=== PATIENT | female | born 1950 ===

== ENCOUNTER 2018-03-18 16:50 | Emergency (ER) | payer MEDICARE, MEDICAID ==
[2018-03-18 16:57] VITALS: BMI 33.3
[2018-03-18 18:04] LABS: BASO # 0.1 K/uL (0.0-0.2); BASO % 1.3 % (0.0-2.0); EOS # 0.2 K/uL (0.0-0.7); EOS % 2.1 % (0.0-4.0); HEMOGLOBIN 12.2 g/dL (11.0-16.0); LYMPH # 3.8 K/uL (1.0-4.3); LYMPH % 41.7 % (20.0-40.0); MEAN CELL VOLUME 78.4 fL (81.0-99.0); MEAN CORPUSCULAR HEMOGLOBIN 26.7 pg (27.0-31.0); MEAN PLATELET VOLUME 6.9 fL (7.2-11.7); MONO # 0.6 K/uL (0.0-0.8); NEUT # 4.4 K/uL (1.8-7.0); NEUT % 47.9 % (50.0-75.0); NRBC % 0.1 % (0.0-2.0); RBC 4.58 Mil/uL (3.80-5.20); RED CELL DISTRIBUTION WIDTH 14.6 % (11.5-14.5); WHITE BLOOD COUNT 9.1 K/uL (4.8-10.8)
[2018-03-18 18:15] LABS: ALB/GLOB RATIO 1.3 (1.0-2.1); ALBUMIN 4.5 g/dL (3.5-5.0); ALT/SGPT 32 U/L (9-52); AST/SGOT 26 U/L (14-36); BLOOD UREA NITROGEN 18 mg/dL (7-17); GFR AFRICAN-AMERICAN > 60; GFR NON-AFRICAN AMERICAN > 60; INR 2.6; PROTHROMBIN TIME 28.2 SECONDS (9.7-12.2)
[2018-03-18 18:28] LABS: B-TYPE NATRIURETIC PEPTIDE 57.7 pg/mL (0-900)
--- NOTE | 2018-03-18 18:28 | RAD ---
Date of service: 03/18/2018 PROCEDURE: CHEST RADIOGRAPH, 1 VIEW HISTORY: SOB COMPARISON: 08/29/2015 FINDINGS: LUNGS: Clear. PLEURA: No pneumothorax or pleural fluid seen. CARDIOVASCULAR: No radiographic findings to suggest acute or significant cardiovascular disease. OSSEOUS STRUCTURES: No significant abnormalities. VISUALIZED UPPER ABDOMEN: Normal. OTHER FINDINGS: None. IMPRESSION: No active disease. No acute/significant interval changes.
--- NOTE | 2018-03-18 18:29 | C.PDOC ---
History Of Present Illness 67 y/o female presents to the ER complaining of SOB and palpitations that have been worsening over the past 8-9 days. The patient states they have been increasing in frequency and duration. She admits to having a history of PE. The patient denies any nausea, vomiting, diarrhea, chills, or chest pain. Time Seen by Provider: 03/18/18 17:39 Chief Complaint (Nursing): Palpitations History Per: Patient History/Exam Limitations: no limitations Onset/Duration Of Symptoms: Days Current Symptoms Are (Timing): Still Present Quality: "Pain" Recent travel outside of the [place]: No Past Medical History Reviewed: Historical Data, Nursing Documentation, Vital Signs Vital Signs: Last Vital Signs Temp 98.0 F 03/18/18 16:57 Pulse 101 H 03/18/18 16:57 Resp 18 03/18/18 16:57 BP 159/80 H 03/18/18 16:57 Pulse Ox 99 03/18/18 18:40 - Medical History PMH: Anxiety, Asthma, COPD, Depression, Emphysema, Fractures (RT LEG/CASTED), Gastritis, HTN, Hypercholesterolemia, Hypothyroidism, Pulmonary Embolism (2008) Denies: Chronic Kidney Disease Surgical History: Cholecystectomy, Endoscopy - [facility] Procedures CATARAC PHACOEMULS/ASPIR (12/20/13) EXCISION OF LEFT BREAST, OPEN APPROACH (08/29/15) INSERT LENS AT CATAR EXT (12/20/13) Family History: States: Unknown Family Hx - Social History Hx Alcohol Use: No Hx Substance Use: No - Immunization History Hx Tetanus Toxoid Vaccination: Yes Hx Influenza Vaccination: Yes Hx Pneumococcal Vaccination: Yes Review Of Systems Except As Marked, All Systems Reviewed And Found Negative. Constitutional: Negative for: Fever Cardiovascular: Positive for: Palpitations. Negative for: Chest Pain Respiratory: Positive for: Shortness of Breath Gastrointestinal: Negative for: Nausea, Vomiting, Diarrhea Physical Exam - Physical Exam Appears: Non-toxic, No Acute Distress Skin: Normal Color, Warm, Dry Head: Atraumatic, Normacephalic Eye(s): bilateral: Normal Inspection, PERRL, EOMI Nose: Normal Oral Mucosa: Moist Chest: Symmetrical Cardiovascular: Rhythm Regular, No Murmur Respiratory: Normal Breath Sounds, No Rales, No Rhonchi, No Wheezing Gastrointestinal/Abdominal: Normal Exam, Soft, No Tenderness Extremity: Bilateral: Atraumatic, Normal Color And Temperature, Normal ROM Neurological/Psych: Oriented x3, Normal Speech ED Course And Treatment - Laboratory Results Result Diagrams: 03/18/18 18:01 03/18/18 18:01 ECG: Interpreted By Me, Viewed By Me Interpretation Of ECG: sinus tachycardic (103 bpm). No interval. Normal axis. No ST or P wave abnormalities O2 Sat by Pulse Oximetry: 99 (RA) Pulse Ox Interpretation: Normal Medical Decision Making Medical Decision Making: Impression: 67 y/o female with worsening SOB and palpitations Plan: --EKG --B-Type Natriuretic Peptide --CMP --Troponin I --TSH --CBC --D Dimer --PTT --PT --Chest X-Ray --Ativan 0.5 mg IV palpitations/sob - case s/o to Dr. Stone at 1900 Disposition Discussed With : Pebbles Stone - Disposition Disposition Time: 19:00 Condition: FAIR Forms: [employer] (Estonian) - Clinical Impression Clinical Impression: Palpitations - PA / LEASE ANALYST / Resident Statement MD/DO has reviewed & agrees with the documentation as recorded. - Scribe Statement The provider has reviewed the documentation as recorded by the Scribe (Jess Steel) Provider Attestation: All medical record entries made by the Scribe were at my direction and personally dictated by me. I have reviewed the chart and agree that the record accurately reflects my personal performance of the history, physical exam, medical decision making, and the department course for this patient. I have also personally directed, reviewed, and agree with the discharge instructions and disposition.
[2018-03-18] MEDS ORDERED: Iodixanol 320 MG/ML 100 ML BOTTLE IV ONE (20:04)
[2018-03-18 23:12] VITALS: BP 138/86; PULSE 88; RESP 20; TEMP 98.6; O2SAT 98
--- NOTE | 2018-03-19 09:32 | CT ---
Date of service: 03/18/2018 PROCEDURE: CT Chest with contrast (Pulmonary Angiogram) HISTORY: SOB r/o PE COMPARISON: No prior study is CTA or CT scan chest available comparison however correlation made with chest radiograph obtained earlier same day. Comparison also made with CT scan abdomen pelvis 02/16/2015 which imaged both lung bases. TECHNIQUE: Axial computed tomography images were obtained of the chest in the pulmonary arterial phase of enhancement. Coronal and sagittal reformatted images were created and reviewed. Intravenous contrast dose: 100 cc Visipaque 320 Radiation dose: Total exam DLP = 384.93 mGy-cm. This CT exam was performed using one or more of the following dose reduction techniques: Automated exposure control, adjustment of the mA and/or kV according to patient size, and/or use of iterative reconstruction technique. FINDINGS: PULMONARY ARTERIES: The visualized pulmonary trunk, right and left main, lobar, segmental and proximal subsegmental branches of the pulmonary arteries are well opacified with no definitive filling defects seen to suggest central pulmonary embolus. The pulmonary trunk measures approximately 2.3 cm. AORTA: No acute findings. No thoracic aortic aneurysm. Ascending thoracic aorta measures approximately 2.4 cm and descending thoracic aorta measures approximately 2.22 cm. LUNGS: Mild atelectasis both posterior lower lung zones. PLEURAL SPACES: Unremarkable. No effusion or pneumothorax. HEART: Heart size normal. No significant pericardial effusion. Calcified mitral annulus. No evidence to suggest pulmonary hypertension or dysfunction. LYMPH NODES: No significant mediastinal or adenopathy. Intermittent air seen within the esophagus. Small hiatal hernia. BONES, CHEST WALL: Mild multilevel degenerative spondylosis of the thoracic spine. There are no acute compression fractures nor retropulsed fragments. OTHER FINDINGS: Note is made of a small approximately 12.9 x 12.5 mm lesion in the dome of the liver that exhibits some irregular peripheral enhancement and central low attenuation likely representing a small hemangioma. Consider followup triple phase CT scan of the liver confirm. Small exophytic cyst right kidney measuring approximately 2.2 x 2.1 cm. IMPRESSION: No evidence of acute central pulmonary embolus. . Probable small hemangioma superior aspect right lobe liver. Consider follow-up triple phase CT scan of the liver to confirm
--- NOTE | 2018-03-20 12:56 | CARD ---
APPROVED REPORT Date of service: 03/18/2018 EKG Measurement Heart [id number] <Conclusion> Sinus tachycardia Otherwise normal ECG
== END 2018-03-18 23:06 | disposition left against medical advice (07) ==
LOC: C.ER 16:50
DX: R00.2 Palpitations (principal)
CPT/HCPCS: 71045; 71275; 80053; 83880; 84443; 84484; 85025; 85378; 85610; 85730; 93005; 96374; 99284; J2060; Q9967

== ENCOUNTER 2018-12-09 16:28 | Outpatient (CLI) | payer MEDICARE, MEDICAID | END 2018-12-09 16:29 | disposition home or self-care (01) | LOC: C.RADIC 16:28 | DX: R05 Cough (principal) ==